=== PATIENT | female | born 2000 | race African-American/Black ===

== ENCOUNTER 2023-03-19 00:55 | Inpatient (IN) | payer OTHER, SELFPAY ==
[2023-03-19] VITALS (32 sets, daily range): BP systolic 123–176; BP diastolic 61–145; PULSE 57–202; RESP 18; TEMP 36.5–37; O2SAT 99–100
[2023-03-19] MEDS: LACTATED RINGERS 1,000 ML 125 ML IV CONT (01:15)
--- NOTE | 2023-03-19 01:23 | WPDOBADMIT ---
Obstetrics - Admit Note Admission Note: record reviewed. No pertinent additions to the history and/or any subsequent changes in the physical findings that are not consistent with the expected course of the were found. pt admitted in labor, complicated by limited care and marginal insertion of the umbilical cord and circumvallate placenta Additions to the history and/or subsequent changes in the physical findings follow. None.
[2023-03-19 01:46] LABS: Basophils Percent Auto 0.2 % (0.2-1.2); Eosinophils Absolute Auto 0.1 K/mm3 (0-0.3); Eosinophils Percent Auto 0.7 % (0-4.4); Hematocrit 31.6 % (37.0-47.0); Hemoglobin 10.9 g/dL (12.0-15.0); Immature Granulocyte Absolute 0.04 K/mm3 (0.00-0.031); Immature Granulocyte Percent A 0.5 % (0-0.5); Immature Platelet Fraction Pct 18.6 % (0.9-11.2); Lymphocytes Absolute Auto 3.08 K/mm3 (0.9-3.2); Lymphocytes Percent Auto 36.6 % (18.3-44.2); Mean Corpuscular HGB Conc 34.5 g/dl (32-36); Mean Corpuscular Hemoglobin 29.5 pg (26-34); Mean Corpuscular Volume 85.6 fl (80-100); Mean Platelet Volume 13.2 fl (7.4-10.4); Monocytes Absolute Auto 0.7 K/mm3 (0.1-0.6); Monocytes Percent Auto 8.3 % (2.6-8.5); Neutrophils Absolute Auto 4.5 K/mm3 (1.3-6.7); Neutrophils Percent Auto 53.7 % (45.5-73.1); Platelet Count Result 220 k/mm3 (150-375); Red Blood Count 3.69 M/mm3 (4.2-5.4); Red Cell Distribution Width 13.3 % (11.5-14.5); White Blood Count 8.4 K/mm3 (4.5-10.0)
--- NOTE | 2023-03-19 02:12 | P.PNAN_ITS ---
Anes - Eval Pre Procedure Procedure: Labor epidural Date/Time: 03/19/23 02:12 Surgeon: Govind Preop Diagnosis: Abd pain with contractions Pre Op Diagnosis: IOL Patient Data Age: 22 Gender: F Height: Weight: Last Vital Signs Pulse Ox 99 03/19/23 02:10 Laboratory Tests 03/19/23 01:37 WBC 8.4 K/mm3 (4.5-10.0) RBC 3.69 L M/mm3 (4.2-5.4) Hgb 10.9 L g/dL (12.0-15.0) Hct 31.6 L % (37.0-47.0) MCV 85.6 fl (80-100) MCH 29.5 pg (26-34) MCHC 34.5 g/dl (32-36) RDW 13.3 % (11.5-14.5) Plt Count 220 k/mm3 (150-375) MPV 13.2 H fl (7.4-10.4) Immature Gran % (Auto) 0.5 % (0-0.5) Neut % (Auto) 53.7 % (45.5-73.1) Lymph % (Auto) 36.6 % (18.3-44.2) [place] % (Auto) 8.3 % (2.6-8.5) Eos % (Auto) 0.7 % (0-4.4) Baso % (Auto) 0.2 % (0.2-1.2) Lymph # (Auto) 3.08 K/mm3 (0.9-3.2) [place] # (Auto) 0.7 H K/mm3 (0.1-0.6) Eos # (Auto) 0.1 K/mm3 (0-0.3) Baso # (Auto) 0.0 K/mm3 (0.0-0.1) Abs Immat Gran (auto) 0.04 H K/mm3 (0.00-0.031) Absolute Neuts (auto) 4.5 K/mm3 (1.3-6.7) Absolute Nucleated RBC 0.0 K/mm3 (0.0-0.012) Nucleated RBC % 0.0 % (0.0-0.2) % Immature Plt Fraction 18.6 H % (0.9-11.2) RPR Pending Patient hx anesthesia problems: none Family hx anesthesia problems: none Results Review: All pre-operative results and documents have been reviewed as part of the pre- operative evaluation. FORMERLY [facility], [facility] Past Medical History Medical History Overweight (BMI 25.0-29.9) and not yet delivered Exam Day of Procedure 03/19/23 02:12 Patient weight: overweight Airway: Mallampati scale class II
[2023-03-19] MEDS: fentaNYL CITRATE INJ (*CRX) 100 MCG/2 ML VIAL IV PUSH (03:22)
[2023-03-19] MEDS: LIDOCAINE HCL 1% LOCAL INJ 20 ML VIAL (03:22)
--- NOTE | 2023-03-19 03:38 | PM.OBPRVD ---
OB - Delivery Note Procedure Delivery date: 03/19/23 Procedure: Events: Other (limited ob care) Intrapartal Events: Other (meconium) Delivery augmentation: Rupture of Membranes Delivery monitor: External FHT and External Uterine Route of delivery: Laceration Description: Perineal - 1st Degree Delivery repair: vicryl Specimen: Yes Quantitative Blood Loss (ml): 100 Anesthesia type: Epidural Disposition: Floor [place] Baby Date of : 03/19/23 Time of : 03:20 Weeks of gestation at delivery: 40 gender: Female Weight (pounds): 6 Weight (ounces): 8 presentation: vertex position: Left Occiput Anterior Placenta delivery description: Manual Removal Cord Vessel Description: 3 Vessels and Clamped/Cut score one minute: 8 score five minutes: 9 Narrative: baby vigorous at to warmer for evaluation by deckhand clam dredge, mother and baby stable condition
[2023-03-19] MEDS: BENZOCAINE 20% AER SPR (*SP) 56 GM CAN 1 SPRAY TOPICAL (04:53)
[2023-03-19] MEDS: WITCH HAZEL 40 PADS 1 PAD TOPICAL (04:57)
--- NOTE | 2023-03-19 06:59 | LDADM ---
This patient, Heidi Mendez, was admitted to Labor/Delivery/Recovery 103 on 03/19/23 at 00:55. Plans for labor, pain management and were discussed with patient. Patient/family oriented to hospital policies and general routines including ID bracelet, bed and alarms, visiting hours, pain management, procedures, bathroom and other care routines, personal items, smoking policy, room service/diet and guest tray routines, security routines, and visiting hours. Patient/Family are encouraged to report perceived risks to care and to ask questions if they do not understand what they are told or what they should do. See OBIX for further documentation.
--- NOTE | 2023-03-19 07:09 | PC.NURSE ---
Patient transferred to post room #283 via (w/c ). Support person present. Oriented to unit, room, information board, rooming in, admission packet and security measures. Patient verbalizes understanding.
[2023-03-19] MEDS: ACETAMINOPHEN 325 MG TABLET 650 MG PO ×2 (08:23→16:06)
[2023-03-19] MEDS: MULTIVIT/MIN/PREN/FOL AC/IRON TABLET 1 TAB PO (08:24)
[2023-03-19] MEDS: DOCUSATE SODIUM 100 MG CAPSULE PO (08:24)
[2023-03-19] MEDS: IBUPROFEN 600 MG TABLET PO ×2 (12:13→19:10)
[2023-03-19 14:23] LABS: Hematocrit 28.1 % (37.0-47.0); Hemoglobin 9.5 g/dL (12.0-15.0); Immature Platelet Fraction Pct 18.7 % (0.9-11.2); Mean Corpuscular HGB Conc 33.8 g/dl (32-36); Mean Corpuscular Hemoglobin 29.1 pg (26-34); Mean Corpuscular Volume 85.9 fl (80-100); Mean Platelet Volume 13.5 fl (7.4-10.4); Platelet Count Result 151 k/mm3 (150-375); Red Blood Count 3.27 M/mm3 (4.2-5.4); Red Cell Distribution Width 13.4 % (11.5-14.5); White Blood Count 9.8 K/mm3 (4.5-10.0)
[2023-03-19 14:35] LABS: Alanine Aminotransferase 17 U/L (6-35); Albumin Level 2.9 g/dL (3.5-5.1); Alkaline Phosphatase 211 U/L (38-126); Anion Gap 3 mmol/L (8-16); Aspartate Amino Transferase 33 U/L (14-36); Bilirubin,Total 0.3 mg/dL (0.2-1.3); Blood Urea Nitrogen 5 mg/dL (7-17); Calcium 8.3 mg/dL (8.4-10.2); Carbon Dioxide 23 mmol/L (22-30); Chloride 107 mmol/L (98-107); Estimated Glomerular Filt Rate > 60; Glucose 113 mg/dL (65-110); Potassium 3.6 mmol/L (3.4-5.0); Sodium 133 mmol/L (137-145); Uric Acid 3.7 mg/dL (2.5-7.5)
[2023-03-19] MEDS: NIFEdipine 30 MG TAB.ER.24 PO (19:11)
[2023-03-20] MEDS: IBUPROFEN 600 MG TABLET PO ×2 (03:12→17:12)
[2023-03-20 05:31] LABS: Hematocrit 31.6 % (37.0-47.0); Hemoglobin 10.7 g/dL (12.0-15.0)
[2023-03-20 07:47] VITALS: BP 137/92; PULSE 65; RESP 19; TEMP 36.8; O2SAT 100
[2023-03-20] MEDS: MULTIVIT/MIN/PREN/FOL AC/IRON TABLET 1 TAB PO (08:30)
[2023-03-20] MEDS: ACETAMINOPHEN 325 MG TABLET 650 MG PO (08:30)
[2023-03-20] MEDS: DOCUSATE SODIUM 100 MG CAPSULE PO ×2 (08:30→17:13)
--- NOTE | 2023-03-20 09:27 | PM.OBPNVD ---
OB - PN: Subj Subjective Date/time seen: 03/20/23 09:27 pp day 1 c/o tension headache, tylenol not helpful bp being treated with procardia 30mg XL OB - PN: Obj Data Labs 03/20/23 05:09 03/19/23 14:14 Labs: Laboratory Results - last 24 hr 03/19/23 03/20/23 14:14 05:09 WBC 9.8 RBC 3.27 L Hgb 9.5 L 10.7 L Hct 28.1 L 31.6 L MCV 85.9 MCH 29.1 MCHC 33.8 RDW 13.4 Plt Count 151 MPV 13.5 H % Immature Plt Fraction 18.7 H Sodium 133 L Potassium 3.6 Chloride 107 Carbon Dioxide 23 Anion Gap 3 L BUN 5 L Creatinine 0.60 L Estim Creat Clear Calc Not Reportable Estimated GFR > 60 Glucose 113 H Uric Acid 3.7 Calcium 8.3 L Total Bilirubin 0.3 AST 33 ALT 17 Alkaline Phosphatase 211 H Total Protein 6.0 L Albumin 2.9 L OB - PN A/P Plan day: 1 Comments: rpt labs monitor blood pressures continue procardia BID flexeril for headache GHTN vs preeclampsia co-managing with dr. mortensen Time Spent With Patient Time: Total time spent is greater than 50% in coordination of care (as documented) at patient's floor/unit and/or counseling patient: Review of Systems Review of Systems: All systems reviewed & are unremarkable except as noted in HPI and below Exam Const: General: cooperative and healthy appearing Chest: Chest palpation & inspection: normal inspection of the chest Resp: Effort & Inspection: normal respiratory effort Cardio: Rate: regular rate Rhythm: regular rhythm GI: Other: soft Skin: General skin exam: normal color Neuro: General: patient oriented x3 Extrem: Right lower extremity: normal to inspection Left lower extremity: normal to inspection
--- NOTE | 2023-03-20 09:57 | PC.NURSE ---
0942- Patient declines flexeril at this time and declines pain.
[2023-03-20 12:02] LABS: Hematocrit 29.4 % (37.0-47.0); Mean Corpuscular Hemoglobin 29.2 pg (26-34); Mean Corpuscular Volume 85.7 fl (80-100); Mean Platelet Volume 12.7 fl (7.4-10.4); Platelet Count Result 156 k/mm3 (150-375); Red Blood Count 3.43 M/mm3 (4.2-5.4); Red Cell Distribution Width 13.7 % (11.5-14.5); White Blood Count 7.9 K/mm3 (4.5-10.0)
--- NOTE | 2023-03-20 12:09 | WPDANLDPN2 ---
Anes-Prog Note L&D Date/Time: 03/20/23 12:09 Comfortable throughout: labor and delivery Neuraxial method: epidural Epidural/Spinal procedure site: clean & non-tender Neuro status: Neuro function grossly intact. Cardiovascular status: normal Respiratory status: normal Airway patency: baseline Mental status: baseline Post-Op hydration status: normal Vital Signs: Last Vital Signs Temp 36.8 C 03/20/23 07:47 Pulse 65 03/20/23 07:47 Resp 19 03/20/23 07:47 BP 137/92 H 03/20/23 07:47 Pulse Ox 100 03/20/23 07:47 O2 Del Method Room Air 03/19/23 12:30 Pain score (VAS): 3/10 I/O: Intake & Output 03/19/23 03/20/23 03/20/23 23:59 07:59 15:59 Intake Total 400 Output Total 900 Balance -500 Post-procedural complaints: none Patient feedback: Patient satisfied with anesthetic care.
[2023-03-20 12:12] LABS: Alanine Aminotransferase 26 U/L (6-35); Albumin Level 3.2 g/dL (3.5-5.1); Alkaline Phosphatase 186 U/L (38-126); Anion Gap 0 mmol/L (8-16); Aspartate Amino Transferase 48 U/L (14-36); Bilirubin,Total 0.3 mg/dL (0.2-1.3); Blood Urea Nitrogen 5 mg/dL (7-17); Calcium 8.5 mg/dL (8.4-10.2); Carbon Dioxide 28 mmol/L (22-30); Chloride 104 mmol/L (98-107); Estimated Glomerular Filt Rate > 60; Glucose 70 mg/dL (65-110); Sodium 132 mmol/L (137-145); Uric Acid 3.5 mg/dL (2.5-7.5)
[2023-03-20 12:45] VITALS: BP 133/82
--- NOTE | 2023-03-20 13:01 | PCCCNOTE ---
Care Coordination met with pt. and FOB this afternoon to discuss discharge planning. Pt.'s current D/C plan is to return home with her father and children. This is patients second baby, her first born is under one. Pt. confirms she has everything needed to safely bring baby home. She had questions concerning carseat and has been informed that her RN will assess carseat at time of D/C. Pt. is current with [facility] for her other child and will call the office on Tuesday. Pt. denies any current DCFS cases and any D/C needs a this time.
[2023-03-20 16:37] VITALS: BP 120/78
[2023-03-20 17:32] LABS: Hematocrit 32.5 % (37.0-47.0); Hemoglobin 11.4 g/dL (12.0-15.0); Mean Corpuscular HGB Conc 35.1 g/dl (32-36); Mean Corpuscular Hemoglobin 29.9 pg (26-34); Mean Corpuscular Volume 85.3 fl (80-100); Mean Platelet Volume 13.2 fl (7.4-10.4); Platelet Count Result 193 k/mm3 (150-375); Red Blood Count 3.81 M/mm3 (4.2-5.4); Red Cell Distribution Width 13.7 % (11.5-14.5)
[2023-03-20 17:46] LABS: Alanine Aminotransferase 34 U/L (6-35); Albumin Level 3.6 g/dL (3.5-5.1); Alkaline Phosphatase 197 U/L (38-126); Anion Gap 6 mmol/L (8-16); Aspartate Amino Transferase 54 U/L (14-36); Bilirubin,Total 0.3 mg/dL (0.2-1.3); Blood Urea Nitrogen 7 mg/dL (7-17); Calcium 8.9 mg/dL (8.4-10.2); Carbon Dioxide 25 mmol/L (22-30); Chloride 103 mmol/L (98-107); Estimated Glomerular Filt Rate > 60; Glucose 91 mg/dL (65-110); Potassium 4.3 mmol/L (3.4-5.0); Sodium 134 mmol/L (137-145); Uric Acid 3.5 mg/dL (2.5-7.5)
[2023-03-20 19:37] VITALS: BP 141/78; PULSE 81; RESP 18; TEMP 36.6; O2SAT 100
[2023-03-20] MEDS: NIFEdipine 30 MG TAB.ER.24 PO (19:38)
[2023-03-21 05:30] VITALS: BP 135/89; PULSE 82; RESP 18; TEMP 36.3; O2SAT 100
[2023-03-21 05:33] LABS: Hematocrit 34.2 % (37.0-47.0); Hemoglobin 11.7 g/dL (12.0-15.0); Immature Platelet Fraction Pct 17.6 % (0.9-11.2); Mean Corpuscular HGB Conc 34.2 g/dl (32-36); Mean Corpuscular Hemoglobin 29.5 pg (26-34); Mean Corpuscular Volume 86.1 fl (80-100); Platelet Count Result 213 k/mm3 (150-375); Red Blood Count 3.97 M/mm3 (4.2-5.4); Red Cell Distribution Width 13.3 % (11.5-14.5); White Blood Count 10.6 K/mm3 (4.5-10.0)
[2023-03-21 05:41] LABS: Alanine Aminotransferase 40 U/L (6-35); Alkaline Phosphatase 203 U/L (38-126); Anion Gap 7 mmol/L (8-16); Aspartate Amino Transferase 55 U/L (14-36); Bilirubin,Total 0.3 mg/dL (0.2-1.3); Blood Urea Nitrogen 11 mg/dL (7-17); Calcium 9.2 mg/dL (8.4-10.2); Carbon Dioxide 24 mmol/L (22-30); Chloride 102 mmol/L (98-107); Estimated Glomerular Filt Rate > 60; Glucose 85 mg/dL (65-110); Potassium 4.5 mmol/L (3.4-5.0); Sodium 133 mmol/L (137-145); Uric Acid 3.5 mg/dL (2.5-7.5)
[2023-03-21 07:25] VITALS: BP 127/76; PULSE 80; RESP 18; TEMP 37.1; O2SAT 100
--- NOTE | 2023-03-21 07:41 | PM.OBPNVD ---
OB - PN: Subj Subjective Date/time seen: 03/21/23 07:41 Interval history: Bp stable on labetalol 200mg BID liver enzymes slightly elevated denies headache, visual changes, epigastric pain OB - PN: Obj Data Labs 03/21/23 05:22 03/21/23 05:22 Labs: Laboratory Results - last 24 hr 03/20/23 03/20/23 03/21/23 11:02 17:06 05:22 WBC 7.9 9.0 10.6 H RBC 3.43 L 3.81 L 3.97 L Hgb 10.0 L 11.4 L 11.7 L Hct 29.4 L 32.5 L 34.2 L MCV 85.7 85.3 86.1 MCH 29.2 29.9 29.5 MCHC 34.0 35.1 34.2 RDW 13.7 13.7 13.3 Plt Count 156 193 213 MPV 12.7 H 13.2 H 13.0 H % Immature Plt Fraction 17.6 H Sodium 132 L 134 L 133 L Potassium 4.0 4.3 4.5 Chloride 104 103 102 Carbon Dioxide 28 25 24 Anion Gap 0 L 6 L 7 L BUN 5 L 7 11 Creatinine 0.60 L 0.70 0.70 Estim Creat Clear Calc Not Reportable Not Reportable Not Reportable Estimated GFR > 60 > 60 > 60 Glucose 70 91 85 Uric Acid 3.5 3.5 3.5 Calcium 8.5 8.9 9.2 Total Bilirubin 0.3 0.3 0.3 AST 48 H 54 H 55 H ALT 26 34 40 H Alkaline Phosphatase 186 H 197 H 203 H Total Protein 6.0 L 7.0 7.0 Albumin 3.2 L 3.6 4.0 OB - PN A/P Plan day: 2 Plan: routine care and discharge home Comments: plan follow up tomorrow with rpt cbc and cmp, precautions reviewed, continue labetalol Time Spent With Patient Time: Total time spent is greater than 50% in coordination of care (as documented) at patient's floor/unit and/or counseling patient: Review of Systems Review of Systems: All systems reviewed & are unremarkable except as noted in HPI and below Exam Const: General: cooperative, healthy appearing and comfortable Chest: Chest palpation & inspection: normal inspection of the chest Resp: Effort & Inspection: normal respiratory effort GI: Other: soft Skin: General skin exam: normal color Extrem: Right lower extremity: normal to inspection Left lower extremity: normal to inspection
--- NOTE | 2023-03-21 07:46 | P.DS_ITS ---
DS: Admitting Diagnosis Discharge Date 03/21/23 Admitting Diagnosis labor DS: Discharge Diagnosis Discharge Diagnosis (1) Vaginal delivery: Code(s): O80 - Encounter for full-term uncomplicated delivery Status: Acute OB - DS: Summary OB Procedures : None OB Procedures Intrapartum: Spontaneous Vag Delivery OB Procedures: : None Time Spent with Patient Time attestation: Total time spent providing and/or coordinating discharge services: DS: Data Data Completed and Pending Labs on day of discharge: Labs from last 24 hours 03/21/23 03/20/23 03/20/23 05:22 17:06 11:02 WBC 10.6 H 9.0 7.9 RBC 3.97 L 3.81 L 3.43 L Hgb 11.7 L 11.4 L 10.0 L Hct 34.2 L 32.5 L 29.4 L MCV 86.1 85.3 85.7 MCH 29.5 29.9 29.2 MCHC 34.2 35.1 34.0 RDW 13.3 13.7 13.7 Plt Count 213 193 156 MPV 13.0 H 13.2 H 12.7 H % Immature Plt Fraction 17.6 H Sodium 133 L 134 L 132 L Potassium 4.5 4.3 4.0 Chloride 102 103 104 Carbon Dioxide 24 25 28 Anion Gap 7 L 6 L 0 L BUN 11 7 5 L Creatinine 0.70 0.70 0.60 L Estim Creat Clear Calc Not Reportable Not Reportable Not Reportable Estimated GFR > 60 > 60 > 60 Glucose 85 91 70 Uric Acid 3.5 3.5 3.5 Calcium 9.2 8.9 8.5 Total Bilirubin 0.3 0.3 0.3 AST 55 H 54 H 48 H ALT 40 H 34 26 Alkaline Phosphatase 203 H 197 H 186 H Total Protein 7.0 7.0 6.0 L Albumin 4.0 3.6 3.2 L Discharge Plan Discharge Attending physician on discharge: Catalino Faust Discharging Clinician: Alayna Mooney Patient Disposition: Home, Self-Care Activity: pelvic rest Diet: regular Patient Instructions: Antibiotic Form Stand Alone Forms: General Discharge Information Follow-up/Referrals: Alayna Moonye, SHARYNM [Certified Nurse Mechanic Senior] - 1 Week (1 week bp check) Discharge Medications: New ibuprofen 600 mg Tablet 600 mg PO Q6H PRN (Reason: Cramping) Qty: 30 0RF Date of admission: 03/19/23 00:55 Primary Care Provider: PHYSICIAN,INTEGRATED [employer] LAYOUT DESIGNER Admitting Provider: Catalino Faust Attending physician on admission: Catalino Faust Condition: Stable
[2023-03-21] MEDS: MULTIVIT/MIN/PREN/FOL AC/IRON TABLET 1 TAB PO (08:28)
[2023-03-21] MEDS: DOCUSATE SODIUM 100 MG CAPSULE PO (08:28)
[2023-03-21] MEDS: IBUPROFEN 600 MG TABLET PO (08:29)
[2023-03-21] MEDS: CYCLOBENZAPRINE HCL 10 MG TABLET PO (08:29)
--- NOTE | 2023-03-21 09:34 | PC.NURSE ---
Pt sleeping well, woke patient to reassess pain, she reported no headache and denies pain or discomfort.
[2023-03-21 11:05] LABS: Rapid Plasma Reagin Non-Reactive (NonReactive)
--- NOTE | 2023-03-21 12:35 | PC.NURSE ---
Patient does not want TDAP.
--- NOTE | 2023-03-21 12:45 | PC.NURSE ---
Woke patient to complete discharge instructions. Discharge paperwork completed. Transponder removed. Patient waiting for ride home to arrive.
[2023-03-23 14:27] VITALS: BP 146/79; PULSE 106; RESP 18; O2SAT 100
== END 2023-03-21 14:35 | disposition home or self-care (01) | DRG 560 ==
LOC: ANHLDR 03:05 → ANHOB2 07:12
PROVIDERS: Advanced Practice Midwife; Admitting Provider Obstetrics & Gynecology; Visit Provider Obstetrics & Gynecology
DX: O43.113 Circumvallate placenta, third trimester (principal); Z37.0 Single live birth; Z3A.40 40 weeks gestation of pregnancy; O69.89X0 Labor and delivery complicated by other cord complications, not applicable or unspecified; O70.0 First degree perineal laceration during delivery; O77.0 Labor and delivery complicated by meconium in amniotic fluid
CPT/HCPCS: 36415; 80053; 84550; 85014; 85018; 85025; 85027; 85055; 86592; 86850; 86900; 86901; 88307; A9270; J2795; J3010; J7120

== ENCOUNTER 2023-03-23 13:40 | Outpatient (CLI) | payer OTHER, SELFPAY ==
[2023-03-23 14:30] LABS: Basophils Percent Auto 0.3 % (0.2-1.2); Eosinophils Absolute Auto 0.1 K/mm3 (0-0.3); Eosinophils Percent Auto 1.5 % (0-4.4); Hematocrit 34.8 % (37.0-47.0); Hemoglobin 11.9 g/dL (12.0-15.0); Immature Granulocyte Absolute 0.02 K/mm3 (0.00-0.031); Immature Granulocyte Percent A 0.3 % (0-0.5); Lymphocytes Absolute Auto 2.21 K/mm3 (0.9-3.2); Lymphocytes Percent Auto 27.9 % (18.3-44.2); Mean Corpuscular HGB Conc 34.2 g/dl (32-36); Mean Corpuscular Hemoglobin 29.5 pg (26-34); Mean Corpuscular Volume 86.1 fl (80-100); Mean Platelet Volume 12.6 fl (7.4-10.4); Monocytes Absolute Auto 0.6 K/mm3 (0.1-0.6); Monocytes Percent Auto 6.9 % (2.6-8.5); Neutrophils Percent Auto 63.1 % (45.5-73.1); Platelet Count Result 247 k/mm3 (150-375); Red Blood Count 4.04 M/mm3 (4.2-5.4); White Blood Count 7.9 K/mm3 (4.5-10.0)
[2023-03-23 14:41] LABS: Anion Gap 7 mmol/L (8-16); Blood Urea Nitrogen 12 mg/dL (7-17); Carbon Dioxide 23 mmol/L (22-30); Chloride 106 mmol/L (98-107); Potassium 4.5 mmol/L (3.4-5.0); Sodium 136 mmol/L (137-145)
[2023-03-23 14:42] LABS: Alanine Aminotransferase 82 U/L (6-35); Albumin Level 4.3 g/dL (3.5-5.1); Alkaline Phosphatase 183 U/L (38-126); Aspartate Amino Transferase 64 U/L (14-36); Bilirubin,Total 0.5 mg/dL (0.2-1.3); Calcium 9.4 mg/dL (8.4-10.2); Estimated Glomerular Filt Rate > 60; Glucose 92 mg/dL (65-110)
== END 2023-03-23 13:41 | disposition home or self-care (01) ==
LOC: ANHOBOP 13:42
PROVIDERS: Visit Provider Advanced Practice Midwife
DX: R03.0 Elevated blood-pressure reading, without diagnosis of hypertension (principal)
CPT/HCPCS: 36415; 80053; 85025